=== PATIENT | male | born 1955 | race Hispanic/Latino ===

== ENCOUNTER → 2017-10-21 | Day surgery (SDC) | payer OTHER ==
[~2017-10-21] MED LIST: AMLODIPINE BESYL5 MG PO; DEXILANT60 MG PO; FENTANYL CITRATE/PF 100MCG/2 ML INJ ONE; FLOMAX0.4 MG PO; GENERLAC10 GM/15 M PO; MIDAZOLAM HCL 2 MG/2 ML VIAL ONE; PROPOFOL IV EMULSION 10 MG/ML 50 ML VIAL ONE; PROPRANOLOL HCL10 MG PO; XIFAXAN550 MG PO
--- OUTSIDE RECORDS SUMMARY | 2017-10-21 09:16 | XMS REPORT ---
Author Author [facility] Address Unknown Phone Unavailable Care Team Providers Care Shovel Operator Name Role Phone ROELTHONG SANTOS Unavailable Unavailable BETO CHASE Unavailable Unavailable Problems This patient has no known problems. Allergies, Adverse Reactions, Alerts This patient has no known allergies or adverse reactions. Medications This patient has no known medications. Results Test Description Test Time Test Comments Text Results Atomic Results Result Comments CBC W/PLT COUNT & AUTO DIFFERENTIAL 2017-06-25 15:19:00 WHITE BLOOD CELL COUNT (BEAKER) (test hoxo=905) 3.6 K/ L 3.5-10.5 RED BLOOD CELL COUNT (BEAKER) (test picl=049) 4.03 M/ L 4.63-6.08 HEMOGLOBIN (BEAKER) (test ywjw=022) 12.9 GM/DL 13.7-17.5 HEMATOCRIT (BEAKER) (test atrm=568) 37.7 % 40.1-51.0 MEAN CORPUSCULAR VOLUME (BEAKER) (test oawg=080) 93.5 fL 79.0-92.2 MEAN CORPUSCULAR HEMOGLOBIN (BEAKER) (test nrwk=636) 32.0 pg 25.7-32.2 MEAN CORPUSCULAR HEMOGLOBIN CONC (BEAKER) (test mwom=670) 34.2 GM/DL 32.3- 36.5 RED CELL DISTRIBUTION WIDTH (BEAKER) (test uqsr=231) 14.4 % 11.6-14.4 PLATELET COUNT (BEAKER) (test ksgs=447) 115 K/CU MM 150-450 MEAN PLATELET VOLUME (BEAKER) (test omni=314) 11.1 fL 9.4-12.4 NUCLEATED RED BLOOD CELLS (BEAKER) (test ntlj=050) 0 /100 WBC 0-0 NEUTROPHILS RELATIVE PERCENT (BEAKER) (test hjhh=060) 41 % LYMPHOCYTES RELATIVE PERCENT (BEAKER) (test uqpu=947) 39 % MONOCYTES RELATIVE PERCENT (BEAKER) (test fyik=171) 16 % EOSINOPHILS RELATIVE PERCENT (BEAKER) (test qygh=061) 3 % BASOPHILS RELATIVE PERCENT (BEAKER) (test zwnn=981) 1 % NEUTROPHILS ABSOLUTE COUNT (BEAKER) (test ndij=140) 1.45 K/ L 1.78-5.38 LYMPHOCYTES ABSOLUTE COUNT (BEAKER) (test rinp=479) 1.39 K/ L 1.32-3.57 MONOCYTES ABSOLUTE COUNT (BEAKER) (test bfjv=692) 0.56 K/ L 0.30-0.82 EOSINOPHILS ABSOLUTE COUNT (BEAKER) (test vbnn=070) 0.09 K/ L 0.04-0.54 BASOPHILS ABSOLUTE COUNT (BEAKER) (test vwoz=941) 0.05 K/ L 0.01-0.08 IMMATURE GRANULOCYTES-RELATIVE PERCENT (BEAKER) (test wvzo=7888) 0 % 0-1 HEPATITIS A ANTIBODY, [id number] 15:04:00* Test Item Value Reference Range Comments HEPATITIS A IGG ANTIBODY (BEAKER) (test yack=4648) Reactive Nonreactive HEPATITIS B SURFACE [id number] 14:38:00* Test Item Value Reference Range Comments HEPATITIS B SURFACE ANTIGEN (2) (BEAKER) (test jlax=4206) Nonreactive Nonreactive HEPATITIS B SURFACE [id number] 14:38:00* Test Item Value Reference Range Comments HEPATITIS B SURFACE ANTIBODY (BEAKER) (test vcfi=952) 358.3 mIU/mL <8.0 ALPHA FETOPROTEIN (AFP), TUMOR [id number] 14:38:00* Test Item Value Reference Range Comments ALPHA-FETOPROTEIN (BEAKER) (test yxgp=5172) 5.0 ng/mL <10.0 HEPATITIS B CORE ANTIBODY, [id number] 14:38:00* Test Item Value Reference Range Comments HEPATITIS B CORE TOTAL ANTIBODY (BEAKER) (test vqob=298) Nonreactive Nonreactive HEPATITIS C [id number] 14:36:00* Test Item Value Reference Range Comments HEPATITIS C ANTIBODY (BEAKER) (test rxxk=706) Nonreactive Nonreactive [id number] 14:25:00* Test Item Value Reference Range Comments ALPHA-1 ANTITRYPSIN (BEAKER) (test dxyb=405) 146.20 mg/dL 90.00-200.00 COMPREHENSIVE METABOLIC [id number] 14:23:00* Test Item Value Reference Range Comments TOTAL PROTEIN (BEAKER) (test elyr=659) 6.7 gm/dL 6.0-8.3 ALBUMIN (BEAKER) (test affd=6297) 3.1 g/dL 3.5-5.0 ALKALINE PHOSPHATASE (BEAKER) (test bhon=880) 154 U/L 40-150 BILIRUBIN TOTAL (BEAKER) (test dszc=655) 1.3 mg/dL 0.2-1.2 SODIUM (BEAKER) (test bgij=552) 139 meq/L 136-145 POTASSIUM (BEAKER) (test vyzl=275) 4.5 meq/L 3.5-5.1 CHLORIDE (BEAKER) (test gwys=399) 107 meq/L 98-107 CO2 (BEAKER) (test mcix=423) 27 meq/L 22-29 BLOOD UREA NITROGEN (BEAKER) (test gxjg=978) 9 mg/dL 7-21 CREATININE (BEAKER) (test yekp=357) 0.80 mg/dL 0.57-1.25 GLUCOSE RANDOM (BEAKER) (test rlgo=473) 91 mg/dL 70-105 CALCIUM (BEAKER) (test ccet=363) 9.0 mg/dL 8.4-10.2 AST (SGOT) (BEAKER) (test dhel=695) 40 U/L 5-34 ALT (SGPT) (BEAKER) (test sevw=831) 29 U/L 6-55 EGFR (BEAKER) (test sidu=6218) 98 mL/min/1.73 sq m ESTIMATED GFR IS NOT ACCURATE CREATININE CLEARANCE IN PREDICTING GLOMERULAR FILTRATION RATE. ESTIMATED GFR IS NOT APPLICABLE FOR DIALYSIS PATIENTS. BILIRUBIN, [id number] 14:23:00* Test Item Value Reference Range Comments BILIRUBIN DIRECT (BEAKER) (test kvfw=229) 0.5 mg/dL 0.1-0.5 PROTHROMBIN [id number] 14:05:00* Test Item Value Reference Range Comments PROTIME (BEAKER) (test xkin=260) 15.3 seconds 11.7-14.7 INR (BEAKER) (test dsbj=803) 1.2 <=5.9 RECOMMENDED COUMADIN/WARFARIN INR THERAPY RANGESSTANDARD DOSE: 2.0 - 3.0 Includes: PROPHYLAXIS for venous thrombosis, systemic embolization; TREATMENT for venous thrombosis and/or pulmonary embolus.HIGH RISK: Target INR is 2.5-3.5 for patients with mechanical heart valves.US GUIDANCE FOR PROCEDURE [place] [id number] [place] [address] Patient Name: WESTON BRIAN MR #: [id number] : 1955 Age/Sex: 61/M Req #: [id number] Adm Physician: Ordered by: BETO CHASE MD Report #: [id number] Location: US Room/Bed: Procedure: [id number] US/US GUIDANCE FOR PROCEDURE Exam Date: Exam Time: REPORT STATUS: Signed PROCEDURE: ULTRASOUND GUIDANCE FOR PROCEDURE COMPARISON: None. INDICATIONS: Alcoholic Steatohepatitis PROCEDURE: See below. CONCLUSION: Please see the dictation of the biopsy for full clinical details. Dictated by: Gino Benitez M.D. on 02/26/2017 at 11:09 Electronically approved by: Gino Benitez M.D. on 02/26/2017 at 11:09 Dictated By: GNIO BENITEZ MD 08 Transcribed By: CHANDRIKA on 02/26/171108 COPY TO: BETO CHASE MD BIOPSY LIVER [place] [address] Patient Name: WESTON BRIAN MR #: [id number] : 1955 Age/Sex: 61/M Req #: [id number] Adm Physician: Ordered by: BETO CHASE MD Report #: [id number] Location: Room/Bed: Procedure: [id number] IR/BIOPSY LIVER Exam Date: Exam Time: REPORT STATUS: Signed PROCEDURE: IR BIOPSY LIVER COMPARISON: None. INDICATIONS: Alcoholic Steatohepatitis MEDICATIONS: Fentanyl 25 mcg IV. BLOOD LOSS: <1cc SAMPLES: Core biopsy samples x10. FINDINGS: After informed consent was obtained, the patient was placed in the right anterior oblique position. A safe entry route into the right lobe of the liver was identified by ultrasound and the overlying skin was prepped and draped in usual sterile fashion. Lidocaine 1% was delivered for local anesthesia. Under ultrasound guidance, a 17 gauge double-wall needle was advanced into the right lobe of the liver. 10 passes with an 18 gauge core biopsy gun were obtained and sent to pathology for analysis. The guide needle was removed. In order to augment hemostasis, Gelfoam was administered into the biopsy tract as the needle was withdrawn. Post- procedure sonographic images of the liver showed no perihepatic hematoma. The patient tolerated the procedure well and there were no immediate post -procedural complications. The patient was transferred in good condition to the recovery area for observation. A sterile dressing was applied. CONCLUSION: Successful ultrasound-guided random liver biopsy. Samples sent to Pathology for analysis. Dictated by: Gino Benitez M.D. on 02/26/2017 at 12:32 Electronically approved by: Gino Benitez M.D. on 02/26/2017 at 12:32 Dictated By: GINO BENITEZ MD 1232 Transcribed By: CHANDRIKA on 02/26/17 1232 COPY TO: BETO CHASE MD
--- OUTSIDE RECORDS SUMMARY | 2017-10-21 09:16 | XMS REPORT | Clinical Summary ---
Author Author [facility] Address Unknown Phone Unavailable Care Team Providers Care Sifting Operator Name Role Phone PCP Unavailable Allergies No Known Allergies Current Medications Prescription Sig. Disp. Refills Start End Date Status Date amLODIPine (NORVASC) 5 MG Take 5 mg by mouth. Active tablet propranolol (INDERAL) 10 05/20/19 Active MG tablet 18 XIFAXAN 550 mg Tab TK 1 T PO BID 2 05/27/19 Active 18 tamsulosin (FLOMAX) 0.4 TK ONE C PO QHS 1 05/21/19 Active mg Cp24 24 hr capsule 18 lactulose (CHRONULAC) 10 Take 30 g by mouth. 05/29/19 06/28/19 gram/15 mL solution 18 18 Active Problems Problem Noted Date Alcoholic cirrhosis of liver without ascites (HCC) 06/25/2017 Alcohol use 06/25/2017 Immunity status testing 06/25/2017 Cancer screening 06/25/2017 Portal hypertension (HCC) 06/25/2017 Secondary esophageal varices without bleeding (HCC) 06/25/2017 Encounters Date Type Specialty Care Team Description 06/25/2017 Office Visit Hepatology Abdullahi Azul MD Alcoholic cirrhosis of liver without ascites (HCC) (Primary Dx);Alcohol use;Immunity status testing;Cancer screening;Portal hypertension (HCC);Secondary esophageal varices without bleeding (HCC) after 10/20/2016 Family History Medical History Relation Name Comments Cancer Father Diabetes Father Relation Name Status Comments Father Mother Social History Tobacco Use Types Packs/Day Years Used Date Never Smoker Smokeless Tobacco: Never Used Alcohol Use Drinks/Week oz/Week Comments Yes 2-4 times/ week Sex Assigned at Date Recorded Not on file Last Filed Vital Signs Vital Sign Reading Time Taken Blood Pressure 119/70 06/25/2017 11:36 AM [employer] Pulse 53 06/25/2017 11:36 AM [employer] Temperature 36.7 C (98 F) 06/25/2017 11:36 AM [employer] Respiratory Rate 20 06/25/2017 11:36 AM [employer] Oxygen Saturation 99% 06/25/2017 11:36 AM [employer] Inhaled Oxygen - - Concentration Weight 95.3 kg (210 lb 0.5 oz) 06/25/2017 11:36 AM [employer] Height 165.1 cm (5' 5") 06/25/2017 11:36 AM [employer] Body Mass Index 34.95 06/25/2017 11:36 AM [employer] Plan of Treatment Health Maintenance Due Date Last Done Comments INFLUENZA VACCINE 02/16/2018 Results * Hepatitis A antibody, IgG (06/25/2017 12:45 PM) Component Value Ref Range Hep A IgG Reactive (A) Nonreactive Specimen Performing [place] [address] * CBC with platelet count + automated diff (06/25/2017 12:45 PM) Component Value Ref Range WBC 3.6 3.5 - 10.5 K/ L RBC 4.03 (L) 4.63 - 6.08 M/ L Hemoglobin 12.9 (L) 13.7 - 17.5 GM/DL Hematocrit 37.7 (L) 40.1 - 51.0 % MCV 93.5 (H) 79.0 - 92.2 fL MCH 32.0 25.7 - 32.2 pg MCHC 34.2 32.3 - 36.5 GM/DL RDW 14.4 11.6 - 14.4 % Platelets 115 (L) 150 - 450 K/CU MM MPV 11.1 9.4 - 12.4 fL nRBC 0 0 - 0 /100 WBC % Neutros 41 % % Lymphs 39 % % Monos 16 % % Eos 3 % % Baso 1 % # Neutros 1.45 (L) 1.78 - 5.38 K/ L # Lymphs 1.39 1.32 - 3.57 K/ L # Monos 0.56 0.30 - 0.82 K/ L # Eos 0.09 0.04 - 0.54 K/ L # Baso 0.05 0.01 - 0.08 K/ L Immature 0 0 - 1 % Granulocytes-Relative Specimen Performing Laboratory Blood [facility] [address] [place] [address] * Hepatitis C antibody (06/25/2017 12:45 PM) Component Value Ref Range Hepatitis C Ab Nonreactive Nonreactive Specimen Performing Laboratory [address] [address] * Ijntj-7-Qkuejxapnex (06/25/2017 12:45 PM) Component Value Ref Range A-1 Antitrypsin 146.20 90.00 - 200.00 mg/dL Specimen Performing Laboratory [address] [address] * Alpha fetoprotein (AFP), tumor marker (06/25/2017 12:45 PM) Component Value Ref Range Alpha-Fetoprotein 5.0 <10.0 ng/mL Specimen Performing Laboratory [address] [address] * Hepatitis B core antibody, total (06/25/2017 12:45 PM) Component Value Ref Range Hep B Core Total Ab Nonreactive Nonreactive Specimen Performing Laboratory [address] [address] * Hepatitis B surface antibody (06/25/2017 12:45 PM) Component Value Ref Range Hep B S Ab 358.3 (H) <8.0 mIU/mL Specimen Performing Laboratory [address] [address] * Hepatitis B surface antigen (06/25/2017 12:45 PM) Component Value Ref Range hepatitis B Surface Ag Nonreactive Nonreactive Specimen Performing Laboratory [address] [address] * Pro-time/INR (06/25/2017 12:45 PM) Component Value Ref Range Protime 15.3 (H) 11.7 - 14.7 seconds INR 1.2 <=5.9 Specimen Performing Laboratory [address] [address] Narrative RECOMMENDED COUMADIN/WARFARIN INR THERAPY RANGES STANDARD DOSE: 2.0 - 3.0 Includes: PROPHYLAXIS for venous thrombosis, systemic embolization; TREATMENT for venous thrombosis and/or pulmonary embolus. HIGH RISK: Target INR is 2.5-3.5 for patients with mechanical heart valves. * CBC with platelet count + automated diff (06/25/2017 12:45 PM) Specimen Performing Laboratory Blood Narrative The following orders were created for panel order CBC with platelet count + automated diff. Procedure Abnormality Status --------- - ------ CBC with platelet count ...[[id number]]AbnormalFinal result Please view results for these tests on the individual orders. * Bilirubin, direct (06/25/2017 12:45 PM) Component Value Ref Range Bilirubin, Direct 0.5 0.1 - 0.5 mg/dL Specimen Performing Laboratory Blood [place] [id number] * Comprehensive Metabolic Panel (06/25/2017 12:45 PM) Component Value Ref Range Protein, Total 6.7 6.0 - 8.3 gm/dL Albumin 3.1 (L) 3.5 - 5.0 g/dL Alkaline Phosphatase 154 (H) 40 - 150 U/L Total Bilirubin 1.3 (H) 0.2 - 1.2 mg/dL Sodium 139 136 - 145 meq/L Potassium 4.5 3.5 - 5.1 meq/L Chloride 107 98 - 107 meq/L CO2 27 22 - 29 meq/L BUN 9 7 - 21 mg/dL Creatinine 0.80 0.57 - 1.25 mg/dL Glucose 91 70 - 105 mg/dL Calcium 9.0 8.4 - 10.2 mg/dL AST 40 (H) 5 - 34 U/L ALT 29 6 - 55 U/L EGFR 98Comment: ESTIMATED GFR IS NOT ACCURATE mL/min/1.73 sq m CREATININE CLEARANCE IN PREDICTING GLOMERULAR FILTRATION RATE. ESTIMATED GFR IS NOT APPLICABLE FOR DIALYSIS PATIENTS. Specimen Performing Laboratory Blood [address] [address] after 10/20/2016
--- OUTSIDE RECORDS SUMMARY | 2017-10-21 09:16 | XMS REPORT | Clinical Summary ---
Author Author [facility] Organization [facility] Address Unknown Phone Unavailable Care Team Providers Care Hand Booked Folder And Stitcher Name Role Phone Frank Ceron MD PCP Unavailable Allergies No Known Allergies Current Medications Prescription Sig. Disp. Refills Start End Date Status Date amLODIPine (NORVASC) 5 mg Take 5 mg by mouth daily. Active tablet dexlansoprazole Take 60 mg by mouth Active (DEXILANT) 60 mg capsule daily. propranolol (INDERAL) 10 Take 10 mg by mouth 2 Active MG tablet (two) times a day. riFAXimin (XIFAXAN) 550 Take 550 mg by mouth 2 Active mg tablet (two) times a day. spironolactone Take 25 mg by mouth 2 Active (ALDACTONE) 25 MG tablet (two) times a day. tamsulosin (FLOMAX) 0.4 Take 0.4 mg by mouth Active mg capsule,extended nightly. release 24hr lactulose (CEPHULAC) 10 Take 10 g by mouth every 05/28/19 Discontin gram packet 12 (twelve) hours. 18 ued lactulose (CHRONULAC) 10 Take 30 g by mouth 2 05/29/19 Discontin gram/15 mL solution (two) times a day. 18 ued lactulose (CHRONULAC) 10 Take 45 mL (30 g total) 4050 mL 0 05/29/19 05/29/19 Discontin gram/15 mL solution by mouth 3 (three) times 18 18 ued a day for 30 days. lactulose (CHRONULAC) 10 Take 45 mL (30 g total) 4050 mL 0 05/29/19 06/28/19 gram/15 mL solution by mouth 3 (three) times 18 18 a day for 30 days. Active Problems Problem Noted Date Hepatic encephalopathy 05/28/2017 Alcoholic cirrhosis of liver without ascites 05/28/2017 Hypertension 05/28/2017 Encounters Date Type Specialty Care Team Description 05/28/2017 Emergency General Internal Medicine Rehrer, Sean Edouard DO Hepatic encephalopathy - Valarie Royal MD (Primary Dx) 05/29/2017 05/26/2017 Emergency Emergency Medicine Dima Leblanc MD Hepatic encephalopathy - (Primary Dx) 05/27/2017 after 10/20/2016 Family History Medical History Relation Name Comments Hypertension Father Melanoma Father Aortic dissection Mother Relation Name Status Comments Father Mother Social History Tobacco Use Types Packs/Day Years Used Date Never Smoker Smokeless Tobacco: Never Used Alcohol Use Drinks/Week oz/Week Comments No Sex Assigned at Date Recorded Not on file Last Filed Vital Signs Vital Sign Reading Time Taken Blood Pressure 120/74 05/29/2017 8:51 AM DIRECTOR OF PROVIDER RELATIONS Pulse 69 05/29/2017 8:51 AM DIRECTOR OF PROVIDER RELATIONS Temperature 35.6 C (96.1 F) 05/29/2017 8:51 AM DIRECTOR OF PROVIDER RELATIONS Respiratory Rate 18 05/29/2017 8:51 AM DIRECTOR OF PROVIDER RELATIONS Oxygen Saturation 100% 05/29/2017 8:51 AM DIRECTOR OF PROVIDER RELATIONS Inhaled Oxygen - - Concentration Weight 94.3 kg (208 lb) 05/28/2017 9:40 PM DIRECTOR OF PROVIDER RELATIONS Height 165.1 cm (5' 5") 05/28/2017 9:40 PM DIRECTOR OF PROVIDER RELATIONS Body Mass Index 34.61 05/28/2017 9:40 PM DIRECTOR OF PROVIDER RELATIONS Plan of Treatment Not on file Results * Estimated GFR (05/29/2017 4:49 AM) Only the most recent of 3 results within the time period is included. Component Value Ref Range GFR Non Af Amer 85 mL/min/1.73 m2 GFR Af Amer >90 mL/min/1.73 m2 Comment: Chronic kidney disease: <60 mL/min/1.73m2 Kidney failure: <15 mL/min/1.73m2 The estimated GFR is calculated from the IDMS-traceable Modification of Diet in Renal Disease Equation. The accuracy of the calculation is poor when the creatinine is normal. Calculated values >90 mL/min/1.73m2 are not reported. This equation has not been validated in children (<18 years), women, the elderly (>70 years), or ethnic groups other than Caucasians and Americans. Specimen Performing Laboratory Plasma specimen [facility] DEPARTMENT OF PATHOLOGY AND GENOMIC MEDICINE [address] [place] [phone] * Hepatitis C antibody (05/29/2017 4:49 AM) Component Value Ref Range Hepatitis C Ab Non-reactive Non-reactive Specimen Performing Laboratory Blood [facility] DEPARTMENT OF PATHOLOGY AND [facility] [address] [place] [phone] * Hepatitis B core antibody total (05/29/2017 4:49 AM) Component Value Ref Range Hepatitis B core total Ab Non-reactive Non-reactive Specimen Performing Laboratory Blood [facility] DEPARTMENT OF PATHOLOGY AND [facility] [address] [place] [address] * Hepatitis B surface antigen (05/29/2017 4:49 AM) Component Value Ref Range Hepatitis B surface Ag Non-reactive Non-reactive Specimen Performing Laboratory Blood [facility] DEPARTMENT OF PATHOLOGY AND [facility] [address] [place] [address] * CBC with platelet and differential (05/29/2017 4:49 AM) Only the most recent of 3 results within the time period is included. Component Value Ref Range WBC 4.06 (L) 4.50 - 11.00 k/uL RBC 3.95 (L) 4.40 - 6.00 m/uL HGB 12.8 (L)Comment: Results double checked. 14.0 - 18.0 g/dL HCT 35.5 (L) 41.0 - 51.0 % MCV 89.9 82.0 - 100.0 fL MCH 32.4 27.0 - 34.0 pg MCHC 36.1 31.0 - 37.0 g/dL RDW - SD 43.9 37.0 - 55.0 fL MPV 11.2 8.8 - 13.2 fL Platelet count 89 (L) 150 - 400 k/uL Nucleated RBC 0.00 /100 WBC Neutrophils 34.3 (L) 39.0 - 69.0 % Lymphocytes 47.3 (H) 25.0 - 45.0 % Monocytes 13.5 (H) 0.0 - 10.0 % Eosinophils 3.7 0.0 - 5.0 % Basophils 1.0 0.0 - 1.0 % Immature granulocytes 0.2Comment: "Immature granulocytes" 0.0 - 1.0 % (promyelocytes, myelocytes, metamyelocytes) Specimen Performing Laboratory Blood [facility] DEPARTMENT OF PATHOLOGY AND GENOMIC MEDICINE [address] [place] [phone] * Hemoglobin A1c (05/29/2017 4:49 AM) Component Value Ref Range Hemoglobin A1C 4.8 4.0 - 5.6 % Comment: HbA1c cutoffs for diagnosing diabetes: 4.0% - 5.6%=normal 5.7% - 6.4%=increased risk for diabetes (prediabetes) >=6.5%=diabetes Goals for glycemic control (ADA 2016) < 7.0% Target for non adults with diabetes. More or less stringent targets may be appropriate for individual patients. <7.5% Target for Children and adolescents with type 1 diabetes. Specimen Performing Laboratory Blood [facility] DEPARTMENT OF PATHOLOGY AND GENOMIC MEDICINE [address] [place] [phone] * Ammonia level (05/29/2017 4:49 AM) Only the most recent of 4 results within the time period is included. Component Value Ref Range Ammonia 171 (H) 16 - 60 umol/L Specimen Performing Laboratory Blood [facility] DEPARTMENT OF PATHOLOGY AND [facility] [address] [place] [address] * Hepatic function panel (05/29/2017 4:49 AM) Only the most recent of 2 results within the time period is included. Component Value Ref Range Albumin 2.9 (L) 3.5 - 5.0 g/dL Total bilirubin 1.4 (H) 0.0 - 1.2 mg/dL Bilirubin direct 0.4 (H) 0.0 - 0.3 mg/dL Alkaline phosphatase 98 40 - 129 U/L Protein 7.1 6.3 - 8.3 g/dL Comment: [place] 4.6-7.0 g/dL 1 week 4.4-7.6 g/dL 7 months-1year 5.1-7.3 g/dL 1-2 years 5.6-7.5 g/dL >3 years 6.0-8.0 g/dL 18-150 6.3-8.3 g/dL ALT 19 5 - 50 U/L AST 33 10 - 50 U/L Specimen Performing Laboratory Plasma specimen [facility] DEPARTMENT OF PATHOLOGY AND GENOMIC MEDICINE [address] [place] [phone] * Lipid panel (05/29/2017 4:49 AM) Component Value Ref Range Cholesterol 146 <200 mg/dL Triglycerides 58 <150 mg/dL HDL cholesterol 58 >40 mg/dL LDL cholesterol 88Comment: Result obtained by direct LDL <100 mg/dL measurement Lipid panel SeeBelow interpretation Comment: Total Cholesterol (mg/dL) <200 Desirable 200-239 Borderline-high >=240 High Triglycerides (mg/dL) <150 Normal 150-199 Borderline-high 200-499 High >=500 Very high HDL Cholesterol (mg/dL) <40 Low (male) <40 Low (female) LDL Cholesterol (mg/dL) <100 Optimal 100-129 Near or above optimal 130-159 Borderline-high 160-189 High >=190 Very high Risk Catergories that modify LDL goals. Risk Catergories LDL goal (mg/dL) CHD and CHD risk equivalent <100 (10-year risk >20%) Multiple (2+) risk factors <130 (10-year risk=<20%) 0-1 risk factors <160 (<10-year risk) Defining levels of lipids in metabolic syndrome Triglycerides >=150 mg/dL HDL Cholesterol Men <40 mg/dL Women <40 mg/dL Non-HDL cholesterol is a second target for therapy in persons with high triglycerides (>=200 mg/dL) Specimen Performing Laboratory Plasma specimen [facility] DEPARTMENT OF PATHOLOGY AND GENOMIC MEDICINE [address] [place] [phone] * Basic metabolic panel (05/29/2017 4:49 AM) Only the most recent of 2 results within the time period is included. Component Value Ref Range Sodium 138 135 - 148 mEq/L Potassium 4.0 3.5 - 5.0 mEq/L Chloride 104 98 - 112 mEq/L CO2 23 (L) 24 - 31 mEq/L Anion gap 11 7 - 15 mEq/L Comment: Starting from August , anion gap calculation no longer incorporates potassium. Please note the change. BUN 12 8 - 23 mg/dL Creatinine 0.9 0.7 - 1.2 mg/dL Glucose 84 65 - 99 mg/dL Calcium 8.7 (L) 8.8 - 10.2 mg/dL Specimen Performing Laboratory Plasma specimen [facility] DEPARTMENT OF PATHOLOGY AND GENOMIC MEDICINE [address] [place] [address] * Lipase level (05/28/2017 12:59 PM) Only the most recent of 2 results within the time period is included. Component Value Ref Range Lipase 66 (H) 13 - 60 U/L Specimen Performing Laboratory Plasma specimen [facility] DEPARTMENT OF PATHOLOGY AND GENOMIC MEDICINE [address] [place] [address] * Alcohol level, blood (05/28/2017 12:59 PM) Component Value Ref Range Alcohol None Detected mg/dL Comment: Normal None Detected Legal Intoxication in [place] 80 mg/dL (0.08%) - Whole Blood Toxic Concentration 200 mg/dL (0.2%) Potentially Fatal 350 - 500 mg/dL (0.35 - 0.5%) Alcohol percent None Detected % Specimen Performing Laboratory Plasma specimen [facility] DEPARTMENT OF PATHOLOGY AND [facility] [address] [place] [address] * ECG 12 lead (05/28/2017 11:57 AM) Only the most recent of 2 results within the time period is included. Component Value Ref Range Ventricular rate 58 Atrial rate 58 LA interval 156 QRSD interval 98 QT interval 468 QTC interval 459 P axis 1 15 QRS axis 1 63 T wave axis 43 EKG impression Sinus bradycardia-Otherwise normal ECG-In automated comparison with ECG of 26-MAY-2017 20:09,-Nonspecific T wave abnormality has replaced inverted T waves in Inferior leads- Specimen Performing Laboratory [facility] MUSE [address] [place] [address] * Partial thromboplastin time, activated (05/28/2017 11:37 AM) Only the most recent of 2 results within the time period is included. Component Value Ref Range PTT 30.9 23.0 - 36.0 sec Comment: PTT therapeutic range for unfractionated heparin is 61.0-112.0 seconds which corresponds to Anti-Xa 0.3-0.7 U/ml. Specimen Performing Laboratory Blood [facility] DEPARTMENT OF PATHOLOGY AND [facility] [address] [place], [place] [phone] * Prothrombin time with INR (05/28/2017 11:37 AM) Only the most recent of 2 results within the time period is included. Component Value Ref Range Prothrombin time 15.7 (H) 12.0 - 15.0 sec INR 1.2 Comment: The International Normalized Ratio (INR) is a therapeutic monitoring tool for patients who are stable on oral anticoagulant therapy. An INR of 2.0-3.0 is suggested for deep vein thrombosis/pulmonary embolism. Specimen Performing Laboratory Blood [facility] DEPARTMENT OF PATHOLOGY AND [facility] [address] [place], [place] [phone] * Comprehensive metabolic panel (05/28/2017 11:37 AM) Component Value Ref Range Sodium 138 135 - 148 mEq/L Potassium 4.4 3.5 - 5.0 mEq/L Chloride 103 98 - 112 mEq/L CO2 21 (L) 24 - 31 mEq/L Anion gap 14 7 - 15 mEq/L Comment: Starting from August , anion gap calculation no longer incorporates potassium. Please note the change. BUN 15 8 - 23 mg/dL Creatinine 1.0 0.7 - 1.2 mg/dL Glucose 132 (H) 65 - 99 mg/dL Calcium 9.7 8.8 - 10.2 mg/dL Protein 8.2 6.3 - 8.3 g/dL Comment: 4.6-7.0 g/dL 1 week 4.4-7.6 g/dL 7 months-1year 5.1-7.3 g/dL 1-2 years 5.6-7.5 g/dL >3 years 6.0-8.0 g/dL 18-150 6.3-8.3 g/dL Albumin 3.3 (L) 3.5 - 5.0 g/dL A/G ratio 0.7 0.7 - 3.8 Alkaline phosphatase 112 40 - 129 U/L AST 42 10 - 50 U/L ALT 26 5 - 50 U/L Total bilirubin 1.9 (H) 0.0 - 1.2 mg/dL Specimen Performing Laboratory Plasma specimen [facility] DEPARTMENT OF PATHOLOGY AND GENOMIC MEDICINE [address] [place] [address] * Troponin (05/26/2017 11:26 PM) Only the most recent of 2 results within the time period is included. Component Value Ref Range Troponin <0.01 0.00 - 0.60 ng/mL Comment: 0.11 - 1.49 ng/ml May indicate increased risk of acute coronary syndrome. >=1.5 ng/ml Consistent with acute myocardial infarction. The diagnostic value of a single normal or non-diagnostic result is questionable. Serial samples at 2-6 hour intervals are required to rule out acute myocardial injury. Specimen Performing Laboratory Plasma specimen [facility] DEPARTMENT OF PATHOLOGY AND GENOMIC MEDICINE [address] [place] [address] * B natriuretic peptide (05/26/2017 8:13 PM) Component Value Ref Range BNP 22 0 - 100 pg/mL Specimen Performing Laboratory Blood [facility] DEPARTMENT OF PATHOLOGY AND GENOMIC MEDICINE [address] [place] [address] * Lactic acid level (05/26/2017 8:13 PM) Component Value Ref Range Lactic acid 1.5 0.5 - 2.2 mmol/L Specimen Performing Laboratory Blood [facility] DEPARTMENT OF PATHOLOGY AND GENOMIC MEDICINE [address] [place] [address] * Creatine kinase, total (CPK) (05/26/2017 8:13 PM) Component Value Ref Range Creatine kinase 58 (L) 61 - 224 U/L Specimen Performing Laboratory Plasma specimen [facility] DEPARTMENT OF PATHOLOGY AND GENOMIC MEDICINE [address] [place] [address] after 10/20/2016 Insurance Payer Benefit Subscriber ID Type Phone Address Plan / Group [employer] xxxxxxxxxxx [place] [address]
[2017-10-21 10:34] LABS: BASOPHILS % 1.4 % (0.0-1.0); EOSINOPHILS # (AUTO) 0.1 (0.0-0.4); EOSINOPHILS % 4.4 % (0.0-6.0); HEMATOCRIT 38.4 % (38.2-49.6); HEMOGLOBIN 13.5 g/dL (14.0-18.0); LYMPHOCYTES # (AUTO) 1.4 (1.0-3.2); LYMPHOCYTES % 47.6 % (18.0-39.1); MEAN CORPUSCULAR HEMOGLOBIN 32.1 pg (28-32); MEAN CORPUSCULAR HGB CONC 35.2 g/dL (31-35); MEAN CORPUSCULAR VOLUME 91.4 fL (81-99); MONOCYTES # (AUTO) 0.3 (0.2-0.8); MONOCYTES % 11.1 % (4.4-11.3); NEUTROPHILS # (AUTO) 1.1 (2.1-6.9); NEUTROPHILS % 35.5 % (38.7-80.0); PLATELET COUNT 115 x10e3/uL (140-360); RED CELL DISTRIBUTION WIDTH 14.7 % (11.7-14.4)
[2017-10-21 10:48] LABS: INR 1.33; PROTHROMBIN TIME 15.5 seconds (11.9-14.5)
[2017-10-21 10:49] LABS: PARTIAL THROMBOPLASTIN TIME 33.7 seconds (23.8-35.5)
[2017-10-21 10:54] LABS: ALANINE AMINOTRANSFERASE 17 IU/L (0-55); ALBUMIN 3.3 g/dL (3.5-5.0); ALBUMIN/GLOBULIN RATIO 0.8 (0.8-2.0); ALKALINE PHOSPHATASE 177 IU/L (40-150); ANION GAP 9.1 mmol/L (8-16); BLOOD UREA NITROGEN 10 mg/dL (7-26); BUN/CREATININE RATIO 12 (6-25); CARBON DIOXIDE 26 mmol/L (22-29); CHLORIDE 110 mmol/L (98-107); CREATININE, SERUM 0.84 mg/dL (0.72-1.25); EST GLOMERULAR FILTRATION RATE > 60 ML/MIN (60-); GLUCOSE 97 mg/dL (74-118); POTASSIUM 4.1 mmol/L (3.5-5.1); SODIUM 141 mmol/L (136-145)
== END | disposition home or self-care (01) ==
LOC: OR 09:14
PROVIDERS: ATTEND Internal Medicine Gastroenterology
DX: K74.60 Unspecified cirrhosis of liver (principal); I85.10 Secondary esophageal varices without bleeding; I10 Essential (primary) hypertension; K72.90 Hepatic failure, unspecified without coma; R00.1 Bradycardia, unspecified; Z01.810 Encounter for preprocedural cardiovascular examination; Z85.46 Personal history of malignant neoplasm of prostate
CPT/HCPCS: 36415; 43239; 43244; 80053; 85025; 85610; 85730; 93005; J2250

== ENCOUNTER → 2017-11-03 | Outpatient (CLI) | payer OTHER ==
[~2017-11-03] MED LIST changes: -FENTANYL CITRATE/PF 100MCG/2 ML INJ ONE; -MIDAZOLAM HCL 2 MG/2 ML VIAL ONE; -PROPOFOL IV EMULSION 10 MG/ML 50 ML VIAL ONE
--- NOTE | 2017-11-03 08:47 | Diagnostic Imaging Report ---
PROCEDURE:US LIVER COMPARISON:None. INDICATIONS:Cirrhosis TECHNIQUE: Grayscale and color Doppler ultrasound FINDINGS: Right liver span 11.5 cm. Coarse echotexture with multiple punctate calcifications in keeping with granulomas. Nodular contour. Portal vein diameter 0.6 cm; normal flow direction. Normal gallbladder. Wall thickness 0.2 cm. Common bile duct diameter 0.4 cm. No ascites. CONCLUSION: Small, nodular liver in keeping with cirrhosis. No conspicuous underlying mass. Dictated by: Hai Davila M.D. on 11/03/2017 at 8:51 Electronically approved by: Hai Davila M.D. on 11/03/2017 at 8:51
== END | disposition home or self-care (01) ==
LOC: US 07:29
PROVIDERS: ATTEND Internal Medicine Gastroenterology
DX: K74.60 Unspecified cirrhosis of liver (principal)
CPT/HCPCS: 76705

== ENCOUNTER → 2018-04-28 | Outpatient (CLI) | payer OTHER ==
--- NOTE | 2018-04-28 14:23 | Diagnostic Imaging Report ---
EXAM: Right Upper Quadrant Ultrasound INDICATION: ^CIRRHOSIS OF LIVER COMPARISON: Right upper quadrant ultrasound 11/03/2017 TECHNIQUE: Transverse and longitudinal images of the right upper abdomen were obtained. FINDINGS: Liver: Size: 13.7 cm in the right midclavicular line, normal Appearance: Normal echogenicity, coarse hepatic echotexture, nodular contour Mass: No focal masses Gallbladder: Stones/Sludge: None Wall: 0.3 cm Appearance: No wall thickening, pericholecystic fluid or hydrops. Sonographic Causey's Sign: Negative Bile Ducts: Intrahepatic Ducts: No dilatation Extrahepatic Ducts: Common bile duct measures 0.5 cm, no dilatation Pancreas: Visualized portions of the pancreatic neck are normal. Kidneys: Length: Right 10.9 cm Echogenicity: Normal Collecting System: No hydronephrosis Stone: None Cyst/Mass: None Vessels: Aorta: Visualized portions are normal Inferior Vena Cava: Visualized portions are normal Main Portal Vein: 0.7 cm, normal size with hepatopetal flow. Free Fluid: No ascites or pleural effusion IMPRESSION: 1. Coarse hepatic echotexture and nodular contour, consistent with cirrhosis. No focal lesions are identified. Signed by: Dr. Kelvin Morales M.D. on 04/28/2018 2:20 PM
== END ==
LOC: US 13:04
PROVIDERS: ATTEND Internal Medicine Gastroenterology
DX: K74.60 Unspecified cirrhosis of liver (principal)
CPT/HCPCS: 76705